=== PATIENT | female | born 1965 ===

== ENCOUNTER 2022-12-13 16:54 | Inpatient (IN) | payer MEDICAID ==
[2022-12-13] VITALS (15 sets, daily range): BP systolic 86–122; BP diastolic 53–89
[~2022-12-13] VITALS: Ht 175.3 cm; Wt 96.8 kg
--- NOTE | 2022-12-13 17:56 | NUR ---
SHIFT SUMMARY PT A&OX4, VSS/RA, NPO, AMB SBA TO BRP, VOIDING, DENIES PAIN AT THIS TIME, LEFT ROOM TO GO TO O.R. FOR SURGERY. WILL REPORT TO ONCOMING NOC RN.
[2022-12-14 00:06] VITALS: BP 115/74
[2022-12-14 02:27] VITALS: BP 115/64
[2022-12-14 04:44] LABS: BASOPHILS PERCENT AUTO 1 % (0-2); EOSINOPHILS PERCENT AUTO 0 % (0-6); Hematocrit 42.1 % (33.0-51.0); IMMATURE GRAN PERCENT AUTO 1 % (0-1); LYMPHOCYTES ABSOLUTE AUTO 1.24 K/mm3 (0.84-5.20); LYMPHOCYTES PERCENT AUTO 6 % (21-46); MONOCYTES ABSOLUTE AUTO 0.68 K/mm3 (0.16-1.47); MONOCYTES PERCENT AUTO 3 % (4-13); Mean Corpuscular HGB Conc 33.3 g/dL (31.5-36.5); Mean Corpuscular Volume 90 fL (80-100); Mean Platelet Volume 9.1 fL (9.1-12.4); NEUTROPHILS ABSOLUTE AUTO 18.32 K/mm3 (1.96-9.15); NEUTROPHILS PERCENT AUTO 90 % (41-73); Platelet Count 474 K/mm3 (150-400); RDW Coefficient Variation 12.4 % (11.7-14.2); RDW Standard Deviation 40.6 fL (35.1-46.3); Red Blood Cell Count 4.67 M/mm3 (3.80-5.20); White Blood Cell Count 20.44 K/mm3 (4.00-11.30)
[2022-12-14 05:47] LABS: Bun/Creatinine Ratio 10.6 (12.0-20.0); Calcium, Blood 8.8 mg/dL (8.5-10.1); Creatinine, Blood 0.66 mg/dL (0.40-1.00); Potassium, Blood 4.3 mmol/L (3.5-5.5)
[2022-12-14 07:15] VITALS: BP 100/50
--- NOTE | 2022-12-14 09:32 | NUR ---
SUMMARY PT C/O INEFFECTIVE PAIN CONTROL WITH DILAUDID 0.5 MG.I CALLED HOSPITALIST AND RECEIVED ORDER FOR DILAUDID 1 MG NOW,THEN 1 MG IV Q 2 HR PRN. PT VERB IV DILAUDID EFFECTIVE.
[2022-12-14] MEDS ORDERED: ALLO100 PO (11:00)
[2022-12-14] MEDS ORDERED: METF500 PO (11:00)
[2022-12-14 14:42] VITALS: BP 113/70
--- NOTE | 2022-12-14 16:29 | NUR ---
SHIFT SUMMARY PT A&OX4, VSS/RA, BAKARI PO CLD - ADVANCE TO FLD FOR DINNER PER DR LEZAMA, VOIDING, AMB INDEPENDENTLY TO BRP/HALLWAY/UP TO CHAIR, PAIN MANAGED WITH TRAMADAL 100 MG Q6, IVF SL. POD1 LAP APPY, SITES DRY/INTACT, SIMON 90 MLS, DENIES FLATUS. WILL REPORT TO ONCOMING ALEX RN.
[2022-12-14 20:25] VITALS: BP 96/69
[2022-12-15 02:33] VITALS: BP 118/63
[2022-12-15 04:23] LABS: BASOPHILS ABSOLUTE AUTO 0.05 K/mm3 (0.00-0.23); BASOPHILS PERCENT AUTO 0 % (0-2); EOSINOPHILS ABSOLUTE AUTO 0.02 K/mm3 (0.00-0.68); EOSINOPHILS PERCENT AUTO 0 % (0-6); Hematocrit 33.1 % (33.0-51.0); Hemoglobin 11.1 g/dL (11.5-16.0); IMMATURE GRAN ABSOLUTE AUTO 0.11 K/mm3 (0.00-0.10); IMMATURE GRAN PERCENT AUTO 1 % (0-1); LYMPHOCYTES ABSOLUTE AUTO 3.35 K/mm3 (0.84-5.20); LYMPHOCYTES PERCENT AUTO 18 % (21-46); MONOCYTES ABSOLUTE AUTO 1.05 K/mm3 (0.16-1.47); MONOCYTES PERCENT AUTO 6 % (4-13); Mean Corpuscular HGB 29.9 pg (26.0-34.0); Mean Corpuscular HGB Conc 33.5 g/dL (31.5-36.5); Mean Corpuscular Volume 89 fL (80-100); Mean Platelet Volume 9.2 fL (9.1-12.4); NEUTROPHILS ABSOLUTE AUTO 13.76 K/mm3 (1.96-9.15); NEUTROPHILS PERCENT AUTO 75 % (41-73); Platelet Count 435 K/mm3 (150-400); RDW Coefficient Variation 12.2 % (11.7-14.2); RDW Standard Deviation 39.7 fL (35.1-46.3); Red Blood Cell Count 3.71 M/mm3 (3.80-5.20); White Blood Cell Count 18.34 K/mm3 (4.00-11.30)
[2022-12-15 05:09] LABS: Bun/Creatinine Ratio 15.5 (12.0-20.0); Calcium, Blood 8.5 mg/dL (8.5-10.1); Creatinine, Blood 0.58 mg/dL (0.40-1.00); Potassium, Blood 3.8 mmol/L (3.5-5.5)
--- NOTE | 2022-12-15 05:26 | NUR ---
SHIFT SUMMARY PT A&OX4, AND COOPERATIVE WITH CARE. NO ACUTE CHANGES. PAIN MANAGED WITH TRAMADAL. BAKARI FULL LIQUID DINNER WELL, NO NAUSEA. INDEPENDENT IN ROOM/BATHROOM, WALKED THE HALLS ONCE BEFORE BED. ABD DRESSING'S C/D/I. EMPTIED SIMON ONCE, 60ML SS FLUID. PT STATED PASSING "A LITTLE" FLATUS. CALLS APPROPRIATELY, CALL LIGHT WITHIN REACH.
[2022-12-15 07:48] VITALS: BP 103/69
[2022-12-15 16:04] VITALS: BP 114/63
[2022-12-15 19:39] VITALS: BP 118/64
[2022-12-16 04:23] VITALS: BP 104/56
[2022-12-16 05:01] LABS: BASOPHILS ABSOLUTE AUTO 0.15 K/mm3 (0.00-0.23); BASOPHILS PERCENT AUTO 1 % (0-2); EOSINOPHILS ABSOLUTE AUTO 0.16 K/mm3 (0.00-0.68); EOSINOPHILS PERCENT AUTO 1 % (0-6); Hematocrit 34.2 % (33.0-51.0); Hemoglobin 11.4 g/dL (11.5-16.0); IMMATURE GRAN ABSOLUTE AUTO 0.13 K/mm3 (0.00-0.10); IMMATURE GRAN PERCENT AUTO 1 % (0-1); LYMPHOCYTES ABSOLUTE AUTO 3.95 K/mm3 (0.84-5.20); LYMPHOCYTES PERCENT AUTO 26 % (21-46); MONOCYTES ABSOLUTE AUTO 0.96 K/mm3 (0.16-1.47); MONOCYTES PERCENT AUTO 6 % (4-13); Mean Corpuscular HGB 30.1 pg (26.0-34.0); Mean Corpuscular HGB Conc 33.3 g/dL (31.5-36.5); Mean Corpuscular Volume 90 fL (80-100); Mean Platelet Volume 9.4 fL (9.1-12.4); NEUTROPHILS ABSOLUTE AUTO 10.15 K/mm3 (1.96-9.15); NEUTROPHILS PERCENT AUTO 66 % (41-73); Platelet Count 465 K/mm3 (150-400); RDW Coefficient Variation 12.3 % (11.7-14.2); RDW Standard Deviation 40.3 fL (35.1-46.3); Red Blood Cell Count 3.79 M/mm3 (3.80-5.20)
--- NOTE | 2022-12-16 05:24 | NUR ---
SHIFT SUMMARY PT A&OX4, AND COOPERATIVE WITH CARE. NO ACUTE CHANGES. MEDICATING FOR PAIN PER EMAR. TOLERATING FULL LIQUID DIET, NO NAUSEA. PT REPORTS PASSING SOME FLATUS. LAP SITE DRESSINGS C/D/I. REPLACED TEG CHG DRESSING AROUND SIMON INSERTION SITE. INDEPENDENT IN ROOM/BATHROOM. CALLS APPROPRIATELY, CALL LIGHT WITHIN REACH.
[2022-12-16 07:43] VITALS: BP 106/58
--- NOTE | 2022-12-16 12:17 | NUR ---
PT EDUCATED BY THIS RN YESTERDAY 12/15/22 AND TODAY 12/16/22 ON IGNITION SOURCES. PT VERBALIZED UNDERTSTANDING OF WHAT IGNITION SOURCES ARE AND DENIES ANY AVAILIBILITY OF THESE TO HER SINCE ADMIT. PT ALSO STATED PREV EDUCATED ON FIRE SAFETY AND NON-SMOKING CAMPUS POLICY.
[2022-12-16 14:20] VITALS: BP 122/61
--- NOTE | 2022-12-16 15:34 | NUR ---
SHIFT SUMMARY PT POD 3 PERF APPY. LAP SITES X'S 2 C/D/I, TEGADERM DRESSING REMOVED THIS SHIFT. SIMON TO LUQ WITH MURKEY DRAINAGE HOWEVER, IS CLEARER THAN YESTERDAY. SIMON IS DRAINING IN BULB AND ALSO AROUND INSERTIN SITE, AWARE. PT ADVANCED TO SOFT DIET, TOLERATING WITH NO N/V. AMBULATING IN ROOM AND UP TO RESTROOM AD SAULO. SALINE LOCKED BETWEEN ABX.
[2022-12-16 19:02] VITALS: BP 103/57
[2022-12-17 04:23] VITALS: BP 107/61
--- NOTE | 2022-12-17 06:18 | NUR ---
POD 4 S/P PERF APPY. PT VSS T/O NIGHT. 1LO2 NC [address] WHILE SLEEPING TO KEEP SATS >90% I/S USE REINFORCED. PT INCISIONS CDI, ABD SOFT TO PALP. PT REP PASSING SM AMT FLATUS. SIMON PUT OUT 30ML CLOUDY SEROUS DRNG. PAIN MGD PER EMAR W/REP RELIEF. PT AMB INDEP IN ROOM, BAKARI WELL. ABX CONT PER ORDERS.
[2022-12-17 07:04] VITALS: BP 121/69
--- NOTE | 2022-12-17 09:22 | NUR ---
FIRE SAFETY ASSESSMENT AND EDUCATION DONE, VERBALIZED UNDERSTANDING, PT HAS NICOTINE PATCH, NO IGNITION SOURCES NOTED IN ROOM, PT DENIES HAVING ANY IGNITION SOURCES IN ROOM.
[2022-12-17 14:48] VITALS: BP 130/73
[2022-12-17 16:16] LABS: HEMOGLOBIN A1C 9.2 % (4.8-5.6)
--- NOTE | 2022-12-17 17:52 | NUR ---
SUMMARY PT INDEPENDENT IN ROOM, TAKING TRAMADOL FOR PAIN WITH ADEQUATE RELIEF, DENIES ANY NAUSEA, REPORTS TOLERATING DIET WELL, SIMON DRAIN CONT. TO DRAIN CLOUDY SEROUS DRAINAGE, SIMON DRESSING ALSO SATURATED W/ SEROUS DRAINAGE TODAY, DRESSING CHANGED, NEW DRAIN SPONGES APPLIED AND COVERED WITH EXUDRY AND MEFIX TAPE, PT AMBULATING IN ROOM, ENCOURAGED TO AMBULATE DOWN THE HALLS, NO ACUTE CHANGES THIS SHIFT.
[2022-12-17 19:19] VITALS: BP 122/66
--- NOTE | 2022-12-18 04:30 | NUR ---
SHIFT SUMMARY POD 5 LAP APPY RUPTURED, SIMON DRAIN WITH CLEAR S/S DRAINAGE. PAIN WELL MANAGED. VOIDING WELL, REPORTS BM AND PASSING GAS. PATIENT DENIES N/V. LAP SITES RYANNE, C/D/I. SIMON DRAIN SITE IS C/D/I. TOLERATING PO INTAKE.WALKS IN [place] INDEPENDENTLY VSS. WILL REPORT TO DAY RN.
[2022-12-18 04:42] VITALS: BP 110/55
--- NOTE | 2022-12-18 05:32 | NUR ---
IV ATTEMPT 1 ATTEMPT UNSUCCESSFUL BY THIS RN. PATIENT REFUSED MORE ATTEMPTS. 0600 ABX DUE WILL DISCUSS WITH DAY SHIFT NURSE. MAY NEED POWER GLIDE FOR MORE ABX.
[2022-12-18 07:17] VITALS: BP 127/68
--- NOTE | 2022-12-18 09:05 | NUR ---
DR. LEZAMA IN TO SEE PT THIS AM, PT REFUSED ANOTHER IV START, OK TO LEAVE IV OUT FOR NOW PER DR. LEZAMA.
[2022-12-18] MEDS ORDERED: VISBIOME 112.51 EACH PO (10:48)
[2022-12-18] MEDS ORDERED: AMOCLA875 (10:55)
[2022-12-18] MEDS ORDERED: HYDR1TAB94 PO (12:03)
--- NOTE | 2022-12-18 12:28 | NUR ---
DC INSTRUCTIONS GIVEN, VERBALIZED UNDERSTANDING, PT WAITING FOR RIDE HOME.
== END 2022-12-18 13:50 | disposition home or self-care (01) | DRG 340 ==
LOC: SURS 16:54
PROVIDERS: Internal Medicine; Surgery; ADMIT Internal Medicine
PROC: 0DTJ4ZZ Resection of Appendix, Percutaneous Endoscopic Approach (ICD-10-PCS; principal; 2022-12-13 10:15)
DX: K35.32 Acute appendicitis with perforation, localized peritonitis, and gangrene, without abscess (principal); E11.9 Type 2 diabetes mellitus without complications; E78.5 Hyperlipidemia, unspecified; F17.210 Nicotine dependence, cigarettes, uncomplicated; M10.9 Gout, unspecified; Z98.51 Tubal ligation status; Z79.899 Other long term (current) drug therapy; Z79.84 Long term (current) use of oral hypoglycemic drugs
CPT/HCPCS: 36415; 80048; 82947; 83036; 85025; 88304; 94762; A9270; J0295; J1100; J1170; J1650; J1815; J2371; J2405; J2704; J3010; J7030; J7120